=== PATIENT | male | born 1995 | race Caucasian/White ===

== ENCOUNTER 2020-11-29 09:57 | Emergency (ER) | payer OTHER ==
[2020-11-29 10:04] VITALS: BP 114/72; PULSE 93; TEMP 97.8
[2020-11-29] MEDS ORDERED: KETOROLAC TROMETHAMINE 60 MG/2 ML VIAL IM ONE (11:21)
[2020-11-29] MEDS ORDERED: LIDOCAINE 5% TOPICAL PATCH TP ONE (11:21)
[2020-11-29] MEDS ORDERED: LIDOCAINE 5% TOPICAL PATCH ONE (11:24)
[2020-11-29] MEDS ORDERED: KETOROLAC TROMETHAMINE 30 MG/1 ML VIAL ONE (11:25)
== END 2020-11-29 11:42 | disposition home or self-care (01) ==
LOC: JER 09:57 → JERFT 09:57 → JER 11:42
PROC: 3E0233Z Introduction of Anti-inflammatory into Muscle, Percutaneous Approach (ICD-10-PCS; principal; 2020-11-29)
DX: M54.5 Low back pain (principal)
CPT/HCPCS: 72100-TC-FY; 99284-25